=== PATIENT | female | born 1980 | race African-American/Black ===

== ENCOUNTER 2017-08-20 07:44 | Emergency (ER) | payer MEDICAID ==
[~2017-08-20] VITALS: Ht 162.6 cm; Wt 77.4 kg
[2017-08-20 07:48] VITALS: BP 126/81
== END 2017-08-20 08:41 | disposition home or self-care (01) ==
LOC: ED 08:30
DX: K02.9 Dental caries, unspecified (principal); K04.7 Periapical abscess without sinus
CPT/HCPCS: 41800; 99283; 99284